=== PATIENT | female | born 1945 | race Caucasian/White ===

== ENCOUNTER 2018-08-02 23:17 | Emergency (ER) | payer MEDICARE, OTHER, SELFPAY ==
[2018-08-02 23:27] VITALS: PULSE 61; RESP 20; TEMP 37.1; O2SAT 92
[2018-08-02 23:56] LABS: Abs Immature Grans 0.03 k/cumm (0.0-0.09); Absolute Basophil Count 0.03 k/cumm (0.0-0.2); Absolute Eosinophil Count 0.18 k/cumm (0.0-0.7); Absolute Monocyte Count 0.76 k/cumm (0.11-0.7); Absolute Neutrophil Count 1.58 k/cumm (1.2-6.7); Basophils % 0.6; Eosinophils % 3.7; HCT 39.7 % (36.0-46.0); HGB 13.2 g/dL (12.0-15.5); Immature Grans % 0.6; Lymphocytes % 47.1; Mean Corp. HGB Concentration 33.2 g/dL (32.0-36.0); Mean Corpuscular Hemoglobin 30.7 pg (27.0-33.0); Mean Corpuscular Volume 92.3 fL (80-95); Mean Platelet Volume 8.6 fL (8.0-11.0); Monocytes % 15.6; Neutrophils % 32.4; Platelet Count 130 x1000/uL (130-400); RBC Distribution Width 15.1 % (11.7-14.6); White Blood Cell Count 4.88 k/cumm (4.4-10.8)
[2018-08-03 00:05] LABS: Ammonia 19 umol/L (11-32)
[2018-08-03] MEDS: MORPHine 10 MG/ML VIAL 4 MG IVP (00:06)
[2018-08-03] MEDS: LORazepam 2 MG/ML VIAL 0.5 MG IVP (00:07)
[2018-08-03 00:19] LABS: ALT 16 U/L (12-78); AST 20 U/L (15-37); Albumin 2.9 g/dL (3.4-5.0); Alkaline Phosphatase 74 U/L (46-116); Anion Gap 8.6 mmol/L (3-11); BUN 20 mg/dL (7-18); Bilirubin, Total 0.3 mg/dL (0.2-1.0); CO2 27.4 mmol/L (21.0-32.0); CREATININE 0.98 mg/dL (0.55-1.02); Calcium 8.2 mg/dL (8.5-10.1); Chloride 108 mmol/L (98-107); Estimated GFR 56.11 (mL/min/1.73m2); Glucose 113 mg/dL (70-100); Lipase 127 U/L (73-393); Potassium 3.8 mmol/L (3.5-5.1); Sodium 144 mmol/L (136-145); Total Protein 6.3 g/dL (6.4-8.2)
[2018-08-03 00:20] LABS: Troponin I < 0.02 ng/mL (0.00-0.06)
--- NOTE | 2018-08-03 00:40 | DI.CT_ITS ---
SYMPTOM/DIAGNOSIS: LT FLANK PAIN ABDOMEN AND PELVIC CT: A small amount of atelectasis is noted in the lung bases and note is made of a small hiatus hernia. The liver is unremarkable. The gallbladder and bile ducts are unremarkable. There are no stones. The pancreas, spleen and adrenals and kidneys are unremarkable. A few scattered diverticula are noted in the colon. There is no obstruction or mucosal thickening. There is nothing to suggest an acute appendix. The bladder is unremarkable. The reproductive organs as visualized are unremarkable. There is no evidence of free fluid or free air in the intraperitoneal space. No acute bony abnormality is seen. No soft tissue abnormality is seen. There is no evidence of an aortic aneurysm. No lymphadenopathy is seen. SUMMARY: No evidence of an acute abdomen.
--- NOTE | 2018-08-03 00:43 | ED.GENADUL_ITS ---
Discharge Plan Disposition Patient Disposition: HOME Condition: Good Discharge Details Chief Complaint: FlankPain Clinical Impression: Acute dehydration, Abdominal pain Primary Care Provider: Ivette Coats ED Provider: Eleazar Jon Home Meds and New Rx's Prescriptions: No Action omeprazole 20 MG capsule,delayed release(DR/EC) 20 mg PO DAILY Qty: 90 RF: 4 mirtazapine 30 MG tablet,disintegrating 30 mg PO HS Qty: 90 RF: 11 valproic acid 250 MG capsule 500 mg PO BID MDD 4 Qty: 120 RF: 11 omeprazole 20 mg capsule,delayed release(DR/EC) 20 mg PO BID Qty: 180 RF: 4 propranolol 10 mg tablet 10 mg PO TID Qty: 90 RF: 6 haloperidol 5 mg tablet 5 mg PO TID PRN (Reason: psychosis) Qty: 90 RF: 4 lorazepam 0.5 mg tablet 0.5 - 1 mg PO BID Qty: 60 RF: 4 Discharge Instructions Instructions: Dehydration (ED), Abdominal Pain (ED) Additional Instructions: If you notice any worsening of your symptoms, or any new symptoms such as vomiting, diarrhea, fever, chills, shortness of breath, chest pain, numbness, weakness, or fainting , please return immediately to the emergency department for reevaluation. Please follow up with your primary care provider as soon as possible for reassessment and reevaluation. As always, it was a pleasure participating in your medical care today. Medical Decision Making MDM Narrative Medical decision making narrative: This is a 72-year-old female with a past medical history of severe Alzheimer's dementia who is on palliative care. Past medical history is also positive for reflux. She presents today with family for complaint of left lower quadrant abdominal pain, and agitation. She is essentially nonverbal, and is not able to answer any significant questions. Family states that this pain is very atypical for the patient. She does have a history of UTIs in the past. She shows no signs of sepsis, no other significant abnormalities on exam. We will evaluate for UTI, versus acute abdominal pathology. I discussed with family risks and benefits of imaging, and lab work, as well as straight cath for urinalysis, and family feels that this is reasonable and congruent with her wishes. We will treat the patient's pain above all else, rehydrate, make sure she is comfortable at this time EKG 23: 56 Rate 62, intervals normal, sinus rhythm, no ST elevations or depressions. T- wave inversion in V 4V5, no Q waves 1:50 AM Patient's laboratory workup has returned, no significant leukocytosis. Troponin is normal. EKG is benign. Patient's BUN/creatinine ratio is slightly high suggesting dehydration. No other significant abnormalities. Urinalysis is negative for any signs of infection. CT scan is negative for any acute process. Per virtual radiology results are no acute findings. The patient is sleeping comfortably, and shows no signs of pain or distress. We did wake her up and she is doing well with continued no pain. With normal laboratory workup, normal EKG, and troponin, negative CT scan of the abdomen and no signs of pain at this time I feel that she can be safely discharged home back to her home for continued palliative care. I discussed this with the family, and they agree. We discussed red flags for which to return, family understands. I have extensively reviewed the treatment plan and discharge instructions with the patient. I have addressed all patient concerns at this time. The patient was made aware of what symptoms to monitor for that would warrant a return to the emergency department. Discussed the plan with the patient, they demonstrate verbal understanding and agreement with our assessment and plan at this time. Lab Data Lab Results 08/02/18 08/02/18 08/02/18 Range/Units 23:45 23:45 23:45 WBC 4.88 (4.4-10.8) k/cumm RBC 4.30 (4.00-5.20) m/cumm Hgb 13.2 (12.0-15.5) g/dL Hct 39.7 (36.0-46.0) % MCV 92.3 (80-95) fL MCH 30.7 (27.0-33.0) pg MCHC 33.2 (32.0-36.0) g/dL RDW 15.1 H (11.7-14.6) % Plt Count 130 (130-400) x1000/uL MPV 8.6 (8.0-11.0) fL Immature Gran % 0.6 Neutrophils % 32.4 Lymphocytes % 47.1 Monocytes % 15.6 Eosinophils % 3.7 Basophils % 0.6 Absolute Neutrophils 1.58 (1.2-6.7) k/cumm Absolute Lymphocytes 2.30 (1.2-3.4) k/cumm Absolute Monocytes 0.76 H (0.11-0.7) k/cumm Absolute Eosinophils 0.18 (0.0-0.7) k/cumm Absolute Basophils 0.03 (0.0-0.2) k/cumm Sodium 144 (136-145) mmol/L Potassium 3.8 (3.5-5.1) mmol/L Chloride 108 H (98-107) mmol/L Carbon Dioxide 27.4 (21.0-32.0) mmol/L Anion Gap 8.6 (3-11) mmol/L BUN 20 H (7-18) mg/dL Creatinine 0.98 (0.55-1.02) mg/dL Estimated GFR/1.73 m2 56.11 (mL/min/1.73m2) Glucose 113 H (70-100) mg/dL Calcium 8.2 L (8.5-10.1) mg/dL Total Bilirubin 0.3 (0.2-1.0) mg/dL AST 20 (15-37) U/L ALT 16 (12-78) U/L Alkaline Phosphatase 74 (46-116) U/L Ammonia 19 (11-32) umol/L Troponin I < 0.02 (0.00-0.06) ng/mL Total Protein 6.3 L (6.4-8.2) g/dL Albumin 2.9 L (3.4-5.0) g/dL Lipase 127 (73-393) U/L HPI - General Adult General Date/Time Provider Initiated Documentation: 08/02/18 23:34 . HPI Narrative: This is a pleasant 72-year-old female with past medical history of reflux, and severe dementia Alzheimer's for which she is on palliative care, who presents today for evaluation of agitation, and left abdominal/flank pain. She lives in a long term, and she presents today with family. They state that she was much more agitated tonight than normal. She takes Haldol and Ativan as needed for her agitation however this was not sufficient to relieve her symptoms. She also began complaining of left-sided abdominal and flank pain which is also atypical for her. She does have a history of urinary tract infections, but denies any significant abdominal problems in the past. Family denies any recent surgeries. IV illicit drug use , or other pertinent history. Patient has no complaints, however this is limited by her chronic mental baseline. Family has no additional complaints at this time. Related Data Home Medications Medication Instructions Recorded Confirmed omeprazole 20 mg PO DAILY #90 tab-cap 06/25/17 Previous Rx's Medication Instructions Recorded mirtazapine 30 mg PO HS #90 tab 05/27/18 valproic acid 500 mg PO BID #120 tab-cap MDD 4 06/14/18 haloperidol 5 mg tablet 5 mg PO TID PRN #90 tab 07/21/18 omeprazole 20 mg capsule,delayed 20 mg PO BID #180 cap 07/21/18 release propranolol 10 mg tablet 10 mg PO TID #90 tab 07/21/18 lorazepam 0.5 mg tablet 0.5 - 1 mg PO BID #60 tab-cap 07/30/18 Allergies Allergy/AdvReac Type Severity Reaction Status Date / Time Penicillins Allergy Intermediate Unverified 05/13/18 08:20 General Stated Complaint: FlankPain CLARISSA: 3 Review of Systems Review of Systems 10 point review of systems was performed, pertinent positives and negatives are noted in the history of present illness. PFSH Family History Mother Essential hypertension Heart disease Hyperlipidemia Neoplasm Father Neoplasm Sister ALS (amyotrophic lateral sclerosis) Sister Essential hypertension Brother Diabetes Essential hypertension Heart disease Hyperlipidemia Grandfather Cerebrovascular accident Grandfather Neoplasm Grandmother No problems noted. Grandmother Neoplasm Son Diabetes Daughter Diabetes Brother Diabetes Medical History Anxiety Dementia Depressive disorder Social History Smoking/Tobacco Use Status: Never Surgical History Colonoscopy - [facility] (04/06/17) Exam Narrative Exam Narrative: 1.Const: Well-nourished, Well-developed, appearing stated age 2.Eyes: PERRL, no conjunctival injection, and symmetrical lids. 3.ENT: Atraumatic external nose and ears. Moist MM. Neck: Symmetric, trachea midline, No thyromegaly. 4.CVS: +S1/S2, No murmurs or gallops. Peripheral pulses 2+ and equal in all extremities. Brisk capillary refill in all extremities. 5.RESP: Unlabored respiratory effort. Clear to auscultation bilaterally. No wheezes rales or rhonchi 6.GI: Soft, minimal tenderness in left mid abdominal quadrant. No guarding or rebound. No pain in the right lower or left lower abdominal quadrants. No pain on palpation of the flank 7.MSK: Normocephalic/Atraumatic, Extremities w/o deformity or ttp No cyanosis or clubbing, Normal movement of all extremities 8.Skin: Warm, Dry. No rashes or lesions. 9.Neuro: solderer production line II-XII grossly intact. 10.Psych: Patient is calm, collected, and nonverbal. Family states that this is her baseline Course Vital Signs Temperature 37.1 C 08/02/18 23:27 Pulse 61 08/02/18 23:27 Respiratory Rate 08/02/18 23:27 Pulse Oximetry 92 L 08/02/18 23:27 Temperature 37.1 C 08/02/18 23:27 Pulse 61 08/02/18 23:27 Respiratory Rate 08/02/18 23:27 Pulse Oximetry 92 L 08/02/18 23:27 Lab/Test Results Lab/Test Results: Laboratory Tests 08/02/18 08/02/18 08/02/18 23:45 23:45 23:45 WBC 4.88 RBC 4.30 Hgb 13.2 Hct 39.7 MCV 92.3 MCH 30.7 MCHC 33.2 RDW 15.1 H Plt Count 130 MPV 8.6 Immature Gran % 0.6 Neutrophils % 32.4 Lymphocytes % 47.1 Monocytes % 15.6 Eosinophils % 3.7 Basophils % 0.6 Absolute Neutrophils 1.58 Absolute Lymphocytes 2.30 Absolute Monocytes 0.76 H Absolute Eosinophils 0.18 Absolute Basophils 0.03 Sodium 144 Potassium 3.8 Chloride 108 H Carbon Dioxide 27.4 Anion Gap 8.6 BUN 20 H Creatinine 0.98 Estimated GFR/1.73 m2 56.11 Glucose 113 H Calcium 8.2 L Total Bilirubin 0.3 AST 20 ALT 16 Alkaline Phosphatase 74 Ammonia 19 Troponin I < 0.02 Total Protein 6.3 L Albumin 2.9 L Lipase 127
--- NOTE | 2018-08-03 00:53 | DI.VRAD_ITS ---
EXAM: CT Abdomen and Pelvis Without Intravenous Contrast CLINICAL HISTORY: 72 years old, female; Pain; Abdominal pain; Generalized; Prior surgery; Surgery date: 6+ months; Surgery type: Back surgery many years ago; Patient HX: AMS, abd pain TECHNIQUE: Axial computed tomography images of the abdomen and pelvis without intravenous contrast. All CT scans at this facility use at least one of these dose optimization techniques: automated exposure control; mA and/or kV adjustment per patient size (includes targeted exams where dose is matched to clinical indication); or iterative reconstruction. Coronal and sagittal reformatted images were created and reviewed. COMPARISON: No relevant prior studies available. FINDINGS: Lung bases: Small amount of atelectasis in the lung bases. Mediastinum: Small hiatal hernia. ABDOMEN: Liver: Unremarkable. Gallbladder and bile ducts: Unremarkable. No calcified stones. No ductal dilation. Pancreas: Unremarkable. No ductal dilation. Spleen: Unremarkable. No splenomegaly. Adrenals: Unremarkable. No mass. Kidneys and ureters: Unremarkable. No obstructing stones. No hydronephrosis. Stomach and bowel: Scattered few colonic diverticuli. No obstruction. No mucosal thickening. PELVIS: Appendix: Appendix not visualized. Bladder: Unremarkable. No stones. Reproductive: Unremarkable as visualized. ABDOMEN and PELVIS: Intraperitoneal space: Unremarkable. No free air. No significant fluid collection. Bones/joints: No acute fracture. No dislocation. Soft tissues: Unremarkable. Vasculature: Unremarkable. No abdominal aortic aneurysm. Lymph nodes: Unremarkable. No enlarged lymph nodes. IMPRESSION: No acute findings. Dictated and Authenticated by: Eliezer Ceja MD. Ordering:ZA TORRES MD
[2018-08-03 01:11] LABS: Bilirubin Negative (Negative); Blood Trace-intact (Negative); Clarity Clear; Glucose Negative (Negative); Ketones Negative (Negative); Leukocyte Esterase Negative (Negative); Nitrite Negative (Negative); Specific Gravity 1.025 (1.005-1.025); Urobilinogen 0.2 EU/dL (Up TO 0.2); pH 6.5 (5-8)
[2018-08-03 01:17] LABS: Bacteria Rare HPF (Negative); C & S Indicated? No; Casts Negative LPF (Negative); Crystals Negative HPF (Negative); Epithelial Cells Few HPF (Negative); Mucus Negative (Negative); RBC 0-2 (0-2); WBC 0-2 HPF (0-5)
== END 2018-08-03 02:04 | disposition home or self-care (01) ==
PROVIDERS: Emergency Provider Student in an Organized Health Care Education/Training Program; PCP Family Medicine
DX: R10.31 Right lower quadrant pain (principal); E86.0 Dehydration; R45.1 Restlessness and agitation; G30.9 Alzheimer's disease, unspecified; F02.81 Dementia in other diseases classified elsewhere, unspecified severity, with behavioral disturbance; Z87.440 Personal history of urinary (tract) infections
CPT/HCPCS: 36415; 80053; 83690; 93005; 96374; 96375; 99285; 74176; 81003; 81015; 82140; 84484; 85025; 93010; J2060; J2270